=== PATIENT | male | born 1985 | race Caucasian/White ===

== ENCOUNTER 2021-04-28 17:15 | Emergency (ER) | payer BC, OTHER, SELFPAY ==
[2021-04-28] MEDS ORDERED: Ketamine HCl 50 MG/ML IV ONE (17:16)
[2021-04-28] MEDS ORDERED: DIPRIVAN 200 MG/20 ML IV ONE (17:16)
[2021-04-28] MEDS ORDERED: Zofran 4 MG/2 ML VIAL IV ONE (17:27)
[2021-04-28] MEDS ORDERED: Hydromorphone 1 mg/ml Injection IV ONE (17:27)
[2021-04-28 17:31] VITALS: PULSE 64; O2SAT 97
[2021-04-28] MEDS ORDERED: Hydromorphone 1 mg/ml Injection ONE ×3 (17:31→18:25)
[2021-04-28] MEDS ORDERED: Zofran 4 MG/2 ML VIAL ONE (17:31)
--- NOTE | 2021-04-28 17:47 | ERPHSYRPT ---
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 Pain is exacerbated with minimal movements of the left upper extremity and better with holding it closer to chest wall. Does have history of for dislocations in the past. No numbness or ting ling in the left hand/upper extremity. No injury anywhere else. Occurred: just prior to arrival Method of Injury: other Quality: sharpness Severity of Pain-Max: severe Severity of Pain-Current: severe Extremities Pain Location: shoulder: left Modifying Factors: Worsens With: movement Associated Symptoms: none Allergies/Adverse Reactions: No Known Drug Allergies Allergy (Verified 04/28/21 17:31) Home Medications: Nebivolol HCl [Bystolic] 2.5 mg PO DAILY 04/28/21 [History] Paroxetine HCl 20 mg [Paxil 20 MG] 20 mg PO DAILY 04/28/21 [History] Tamsulosin HCl 0.4 mg [Flomax 0.4 MG] 0.4 mg PO DAILY 04/28/21 [History] buPROPion HCL [Bupropion HCl] 100 mg PO DAILY 04/28/21 [History] Travel Risk - International Travel Have you traveled outside of the country in past 3 weeks: No - Coronavirus Screening Are you exhibiting any of the following symptoms?: No Close contact with a COVID-19 positive Pt in past 14-21 Days: No - Vaccine Status Have you recieved a Covid-19 vaccination: Yes 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 - Vaccination Dates Date of 2cond Vaccination (if applicable): 05/2020 - Review of Systems Constitutional: No Symptoms Eyes: No Symptoms Ears, Nose, & Throat: No Symptoms Respiratory: No Symptoms Cardiac: No Symptoms Abdominal/Gastrointestinal: No Symptoms Genitourinary Symptoms: No Symptoms Musculoskeletal: Injury, Joint Pain Skin: No Symptoms Neurological: No Symptoms Psychological: No Symptoms Endocrine: No Symptoms Hematologic/Lymphatic: No Symptoms Immunological/Allergic: No Symptoms - Past Medical History Pertinent Past Medical History: Yes Neurological History: No Pertinent History Cardiac History: Hypertension Respiratory History: No Pertinent History Endocrine Medical History: No Pertinent History Musculoskeletal History: Fractures Other Medical History: HX OF DISLOCATION REQUIRING ASSISTIVE RELOCATION IN 2007 AND 2016 WHICH REQUIRED SEDATION. NO PREVIOUS THERAPY. HX OF FRACTURED RIGHT HAND X 2 - Past Surgical History Past Surgical History: Yes - Social History Smoking Status: Never smoker Exposure to second hand smoke: No Drug Use: none Patient Lives Alone: No - Nursing Vital Signs Nursing Vital Signs: Initial Vital Signs Temperature 97.9 F 04/28/21 17:22 Pulse Rate 64 04/28/21 17:22 Blood Pressure 119/77 04/28/21 17:22 O2 Sat by Pulse Oximetry 97 04/28/21 17:22 Pain Scale Pain Intensity 10 - Physical Exam General Appearance: no apparent distress, alert Eyes, Ears, Nose, Throat Exam: normal ENT inspection Neck Exam: normal inspection, non-tender, supple, full range of motion Cardiovascular/Respiratory Exam: chest non-tender, normal breath sounds, regular rate/rhythm Back Exam: normal inspection, normal range of motion Shoulder Exam: asymmetry, deformity (Hill-Sachs deformity), limited ROM (Left), pain, soft tissue tenderness, swelling Elbow/Forearm Exam: normal inspection, non-tender, no evidence of injury, normal ROM Wrist Exam: normal inspection, non-tender, no evidence of injury, normal ROM Hand Exam: normal inspection, non-tender, no evidence of injury, normal ROM Neuro/Tendon Exam: normal sensation Mental Status Exam: alert, oriented x 3, cooperative Skin Exam: normal color SpO2 Interpretation: normal SpO2: 97 O2 Delivery: Room Air Procedures - Joint Reduction Time of Procedure: 18:00 Timeout: Performed Joint Reduction Site: Left, shoulder Conscious Sedation: Yes Reduction Attempts: 5 Pre-Procedure Neurovascular Exam: neurovascular intact Post Procedure Neurovascular Exam: neurovascular intact Post Joint Reduction Film: joint not reduced - Procedural Sedation Indication: joint reduction Preparation: consent signed, capnographry, iv access, previous anesthia/sedation without complications, constant attendance, satellite project site monitor, oxygen, procedure explained, pulse oximeter, suction Sedation Parenteral: Propofol (Diprovan), Ketamine Response during procedure: light sedation, handled secretions adequately, maintained airway well, oxygenation stable, vital signs stable Post-Procedure Response: return to baseline mental status, vital signs stable Ordered Tests: Active Orders 24 hr Category Date Time Status SHOULDER Stat Exams 04/28/21 17:39 Taken Standby ROUTINE RT 04/28/21 18:45 Completed Medication Summary Discontinued Medications Generic Name Dose Route Start Last Admin Trade Name Jayden PRN Reason Stop Dose Admin Hydromorphone HCl 1 mg 04/28/21 17:27 04/28/21 17:32 Hydromorphone 1 Mg/1ml Inj 1 Mg/Ml Syringe IV 04/28/21 17:28 1 mg STAT ONE Administration Hydromorphone HCl Confirm 04/28/21 17:31 Hydromorphone 1 Mg/1ml Inj 1 Mg/Ml Syringe Administered 04/28/21 17:32 Dose 1 mg .ROUTE .STK-MED ONE Hydromorphone HCl Confirm 04/28/21 18:15 Hydromorphone 1 Mg/1ml Inj 1 Mg/Ml Syringe Administered 04/28/21 18:16 Dose 1 mg .ROUTE .STK-MED ONE Hydromorphone HCl Confirm 04/28/21 18:25 Hydromorphone 1 Mg/1ml Inj 1 Mg/Ml Syringe Administered 04/28/21 18:26 Dose 1 mg .ROUTE .STK-MED ONE Sodium Chloride Confirm 04/28/21 17:52 Sodium Chloride 0.9% 1000 Ml Administered 04/28/21 17:53 Dose 1,000 mls @ ud .ROUTE .STK-MED ONE Ondansetron HCl 4 mg 04/28/21 17:27 04/28/21 17:32 Ondansetron Hcl 4 Mg/2 Ml Vial IV 04/28/21 17:28 4 mg STAT ONE Administration Ondansetron HCl Confirm 04/28/21 17:31 Ondansetron Hcl 4 Mg/2 Ml Vial Administered 04/28/21 17:32 Dose 4 mg .ROUTE .STK-MED ONE - Progress Progress: unchanged, pain not gone completely, re-examined Progress Note: 04/28/21 18:53 35 years old is evaluated for left shoulder dislocation. He is given multiple medication including 3 mg of Dilaudid, 110 mg propofol, 50 of ketamine and tried multiple times with different maneuvers for reduction but was unsuccessful. It was noticed that it goes in and comes out immediately. Patient does have history of difficult reductions in the past needing reduction under general anesthesia. Discussed with Dr. Perez at [facility][1], reviewed history and patient is accepted for transfer. Patient is awake alert and oriented, not in any distress currently after receiving above medications. Discussed with Dr.: Other (Dr. Perez [facility][1] trauma service) Counseled pt/family regarding: diagnosis, need for follow-up, rad results - Departure Departure Disposition: Transfer Clinical Impression: Dislocation of left shoulder joint Qualifiers: Encounter type: initial encounter Qualified Code(s): S43.005A - Unspecified dislocation of left shoulder joint, initial encounter Condition: Stable Critical Care Time: No Referrals: CHANDA LUNDBERG [Primary Care Provider] - Follow up/PCP as directed
[2021-04-28] MEDS ORDERED: Sodium Chloride 0.9% 1000 ML 1,000 ML ONE (17:52)
[2021-04-28 18:55] VITALS: BP 120/79
--- NOTE | 2021-04-28 19:44 | XRAY ---
Indication: Pain following injury. Comparison: June 03, 2019. 3 view left shoulder demonstrates new anterior inferior humeral head dislocation. No other bony, articular, or soft tissue abnormalities.
== END 2021-04-28 19:12 | disposition critical access hospital (66) ==
LOC: ED 17:15
DX: S43.015A Anterior dislocation of left humerus, initial encounter (principal); Y35.811A Legal intervention involving manhandling, law enforcement official injured, initial encounter; Y93.89 Activity, other specified; Y92.149 Unspecified place in prison as the place of occurrence of the external cause; Y99.0 Civilian activity done for income or pay; M24.412 Recurrent dislocation, left shoulder; I10 Essential (primary) hypertension; Z79.899 Other long term (current) drug therapy
CPT/HCPCS: 23650; 73030; 94799; 96374; 96375; 99284; J1170; J2405; J2704